=== PATIENT | male | born 1945 | race Caucasian/White ===

== ENCOUNTER → 2017-04-01 12:30 | Outpatient (CLI) | payer MEDICARE, OTHER, SELFPAY ==
--- NOTE | 2017-04-01 12:36 | CA_ITS ---
PROCEDURE: 2-D M-mode and color Doppler study INDICATIONS FOR THE TEST: Chest pain COPD Heart Murmur Tobacco Smokingex Palpitations Fatigue Syncope Edema Hypertension+Diabetes Mellitus Rheumatic Fever SOB CHRISTIAN Obesity Hyperlipidemia+ Family History HD Additional History Cardiomyopathy, CAD, hx of CABG 2 years ago PATIENT INFORMATION HEIGHT: 70 WEIGHT: 170 GENDER: Male B/P: 143/81 2-D/M-MODE INTERPRETATION: 2-D MEASUREMENTS OBSERVED VALUES IN CMS Right Ventricular Dimension (RVDd) 2.9 Interventricular Septum (Thickness)(IVsd) 1.1 Left Ventricular Internal Dimensions(LVIDd) 5.5 Left Ventricular Posterior Wall (Thickness)(LVPWd) 1.1 Aortic Root 3.2 Aortic Cusp Separation 2.0 Left Atrial Dimensions (LAD) 3.8 2D 1. Left atrium is mildly enlarged, left ventricle is normal size, mild concentric left ventricular visually estimated ejection fraction approximately 40-45%, there appears to be hypokinesis involving the apex ,inferobasal and posterobasal wall. Definity contrast was utilized to delineate endocardial surfaces. 2. The right atrium and right ventricle are mildly enlarged with normal contractility. 3. The aortic valve is thickened and calcified leaflet can't display mobility. 4. The mitral valve has mitral desiccation there is no mitral stenosis 5. The tricuspid valve restructure normal 6. The pulmonic valve is poorly visualized. 7. No significant pericardial effusion noted. DOPPLER INTERROGATION: Doppler interrogation of the aortic, mitral and tricuspid valvular presence of mild mitral and tricuspid regurgitation, tricuspid and jet velocity insufficient for calculation of the right ventricular systolic pressure. Diastolic parameters are inconclusive. CONCLUSION: 1. Technically difficult study because of the patient's factor and poor acoustic windows, Definity contrast ordered to delineate endocardial surfaces. 2. Mildly enlarged left atrium, normal left ventricular size, mild concentric left ventricular hypertrophy, visually estimated ejection fraction 40-45% with segmental wall motion abnormality described above. 3. Thickened and calcified aortic valve, without Doppler evidence of significant aortic stenosis or aortic insufficiency. 4. Mildly enlarged right ventricle with normal contractility. 5. Mild mitral and tricuspid regurgitation. 6. No significant pericardial effusion noted.
== END ==
PROVIDERS: PCP Family Medicine; Visit Provider Internal Medicine
DX: I42.8 Other cardiomyopathies (principal); I25.10 Atherosclerotic heart disease of native coronary artery without angina pectoris; E78.5 Hyperlipidemia, unspecified
CPT/HCPCS: 93306

== ENCOUNTER → 2018-11-24 06:34 | Outpatient (CLI) | payer MEDICARE, OTHER, SELFPAY ==
--- NOTE | 2018-11-24 | CA_ITS ---
APPROVED REPORT Exam: Pharmacologic Technologist: Zofia Mars, Ht: 5 ft 10 in Wt: 233 lbs BSA: 2.23 m2 HR: 88 bpm BP: 135/86 mmHg Indications: Dyspnea Medical History Medical History: DYSPNEA,CABG X 3 2015 Medications: Omeprazole,,,,, Furosemide (LASIX),,,,, Aspirin,,,,, Vitamin D3,,,,, Losartan,,,,, Allopurinol,,,,, Atorvastatin,,,,, Carvedilol,,,,, Potassium,,,,, Cardiac Risk Factors: HTN, Hyperlipidemia Stress Test Details Test: LEXISCAN HR Resting HR: 89 bpm Max Heart Rate (APMHR): 149 bpm Max HR Achieved: 99 bpm Target HR (85% APMHR): 126 bpm % of APMHR: 66 Recovery HR: 96 bpm HR response to stress: 57 BP Resting BP: 135/86 mmHg Max BP: 135/86 mmHg Recovery BP: 96.0/57.0 mmHg ECG Resting ECG: NSR,RAD,ST-T ABNORMALITIES INFERIORLY & LATERALLY Clinical Exercise duration: 04:11 min Highest Stage Achieved: Exercise capacity: 1.0 METs Stress ECG Conclusion DURING LEXISCAN INFUSION PATIENT HAD MILD SOA WITH LIGHTHEADEDNESS. MILD MALIASE AND MILD CHEST HEAVINESS. RARE PVC. EXAGGERATION OF BASELINE ST-T ABNORMALITIES. NON-DIAGNOSTIC LEXISCAN STRESS. MYOVIEW IMAGES REPORTED SEPARATELY. Test Summary REST . . . . . . . Sitting REST 23:02 . . 89 . 135/ 86 . . Stage 1 . . . . . . . Myoview Injected Stage 1 01:00 . . 96 . . . . Stage 2 01:00 . . 98 . 94/ 54 . . Stage 3 01:00 . . 95 . 101/ 63 . . Stage 4 01:00 . . 93 . 106/ 60 . . Stage 4 01:11 . . 93 . 106/ 60 . Stop exercise at 04:11 RECOVERY 01:00 . . 97 . 96/ 57 . . RECOVERY 02:00 . . 95 . 100/ 61 . . RECOVERY 03:00 . . 94 . 100/ 61 . . RECOVERY 04:00 . . 94 . 92/ 59 . . RECOVERY 05:00 . . 93 . 102/ 56 . . RECOVERY 06:00 . . 91 . 102/ 56 . . RECOVERY 07:00 . . 95 . 105/ 61 . . RECOVERY 07:37 . . 93 . 105/ 61 . . Electronically signed by : Arnoldo Sabillon, 11/25/2018 16:45:29
--- NOTE | 2018-11-24 06:37 | CA_ITS ---
APPROVED REPORT EXAM: Comprehensive 2D, Doppler, and color-flow Echocardiogram Sailboat Captain: Monie Velasco CRT Ht: 5 ft 10 in Wt: 231lbs BSA: 2.22 BP: 155/104 mmHg Indications: Congestive Heart Failure, Shortness of Breath, Fatigue, CAD, Hyperlipidemia, Cardiomyopathy, Hypertension/HDD,CABG Echo Enhancing Agent Indication: Endocardial border delineation Agent(s) / Amount(s) Used: Definity 1 cc 2D Dimensions LVOT 2.20 cm (M/F) 1.5-2.5 M-Mode Dimensions RVDd 3.10 cm (0.9-2.6) LA Diam 4.30 cm (1.9-4.0) LVDd 5.90 cm (3.5-5.7) Ao Diam 2.90 cm (2.0-3.7) LVDs 4.10 cm (3.5-5.7) AV Cusp 1.70 cm (1.5-2.6) IVSd 1.20 cm (0.6-1.1) PWd 1.20 cm (0.6-1.1) EF (Teich) 57.10% FS 30.50% EDV (Teich) 173.00 mL ESV (Teich) 74.20 mL LV Diastology E/A Ratio 0.6 MED E' 5.26 (< 7 cm/sec) E'/MED E' Ratio 11.70 (>14) LAT E' 5.56 (<10 cm/sec) E/LAT E' Ratio 11.10 (>14) Aortic Valve AoV Peak Lino. 97.20 (50-130 cm/s) AI PHT 252.00 ms AO Peak GR. 4.00 mmHg Mitral Valve MV E Max Lino. 61.70 (40-130 cm/s) MV A Velocity 109.00 (40-130 cm/s) E/A Ratio 0.60 Pulmonary Valve PA Accel Time 77.00 (>120 msec) Tricuspid Valve TR P. Velocity 236.00 cm/s Left Ventricle Left atrium is mildly enlarged, left ventricle is mildly dilated, there is mild concentric left ventricular hypertrophy, visually estimated ejection fraction 50%, with moderate hypokinesis involving the inferior basal wall. Grade 1 diastolic dysfunction seen without tissue Doppler evidence of raise left atrial pressure. Right Ventricle Right atrium and right ventricular mildly enlarged with normal contractility. Aortic Valve Aortic root is enlarged measuring 3.9 cm, there is no aortic stenosis, there is mild aortic insufficiency. Mitral Valve Mitral valve leaflets are minimally thickened. There is no mitral stenosis, there is mild mitral regurgitation. Tricuspid Valve Tricuspid valve is grossly normal, there is mild tricuspid regurgitation, tricuspid regurgitation jet velocity is inadequate for calculation of the right ventricular systolic pressure. Pulmonic Valve Pulmonic valve is poorly visualized. Great Vessels Aortic root is enlarged measuring 3.9 cm, ascending aorta is mildly enlarged. Pericardium No significant pericardial effusion noted. Conclusion 1. Technically difficult study because of the patient factors and poor requesting windows, Definity contrast was utilized to delineate the endocardial surfaces. 2. Mildly enlarged left atrium, normal left ventricular size, mild concentric left ventricular hypertrophy, visually estimated ejection fraction 50% with segmental wall motion abnormality described above, there is no left ventricular thrombus seen. Grade 1 diastolic dysfunction seen without tissue Doppler evidence of raise left atrial pressure. 3. Mildly enlarged right ventricle with normal contractility. 4. Aortic root and ascending aorta is enlarged measuring 3.9 cm, there is no aortic stenosis, there is mild aortic insufficiency. 5. Mild mitral and tricuspid regurgitation. 6. No significant pericardial effusion noted. Electronically signed by : Arnoldo Sabillon, 11/26/2018 08:52:28
--- NOTE | 2018-11-24 06:38 | NM_ITS ---
APPROVED REPORT Exam: Nuclear Stress Test Indication: dyspnea Patient Location: Outpatient Stress Tech: Zofia Mars [place] Tech:Kelsie HartmannSCOTTY RT(R)(N) Ht: 5 ft 10 in Wt: 233 lbs BSA: 2.23 m2 HR: 88 bpm BP: 135/86 mmHg BMI: 33.4 Procedure: Patient received a 0.4 mg of intravenous Lexiscan, resting heart rate 88 bpm, resting blood pressure 135/86 mmHg, with Lexiscan maximum heart rate achived was 97 bpm which is Less than 85 % of the maximum predicted heart rate and blood pressure was 101/63 mmHg. With Lexiscan patient complained of mild chest heaviness. Electrocardiogram Resting electro cardiogram showed sinus rhythm nonspecific ST-T changes, with Lexiscan there is less than 1.[address] segment depression noted from the baseline EKG. The EKG portion of the Lexiscan Myoview is nondiagnostic. Cardiac Stress and Resting SPECT Images: Cardiac Stress and Resting SPECT images were obtained using technetium 99m Myoview 32.1 mCi stress and 10.37 mCi at rest. Gated SPECT with analysis of segmental wall motion and calculation of the ejection fraction also done. Cardiac stress and resting SPECT images show uniform myocardial activity without segmental perfusion abnormality, computer derived ejection fraction is over 65% with no regional wall motion abnormality, right ventricle is normal size and contractility. Conclusion: 1. The EKG portion of the Lexiscan Myoview is nondiagnostic. 2. No scintigraphic evidence of reversible ischemia seen, computer derived ejection fraction is over 65% with no regional wall motion abnormality, right ventricle is normal size and contractility. 3. Normal Lexiscan Myoview study. Electronically signed by : Arnoldo Sabillon, 11/25/2018 16:42:51
--- NOTE | 2018-11-24 10:45 | HMH.ITSHM ---
Current Home Medications as stated by this patient Osvaldo Hurtado JR or asset protection representative. [] asa losatan allopurinol tamsulosin carvedilol furosemide atrovastatin omprazole
== END ==
PROVIDERS: PCP Family Medicine; Visit Provider Internal Medicine Cardiovascular Disease
DX: E78.5 Hyperlipidemia, unspecified (principal); I10 Essential (primary) hypertension; I25.10 Atherosclerotic heart disease of native coronary artery without angina pectoris; I25.2 Old myocardial infarction; I25.5 Ischemic cardiomyopathy; I42.9 Cardiomyopathy, unspecified; R06.00 Dyspnea, unspecified; Z95.1 Presence of aortocoronary bypass graft
CPT/HCPCS: 78452; 93017; 93306; A9502; J2785

== ENCOUNTER → 2018-11-26 09:14 | Outpatient (CLI) | payer MEDICARE, OTHER, SELFPAY ==
[2018-11-26 09:40] LABS: Basophils # 0.1 K/mm3 (0-0.2); Basophils % 0.8 % (0.1-2.0); Eosinophils # 0.4 K/mm3 (0.0-0.4); Eosinophils % 3.3 % (0.1-12.0); Hematocrit 46.6 % (42.0-52.0); Hemoglobin 15.5 g/dL (14.1-18.0); Lymphocytes # 1.8 K/mm3 (0.7-4.5); Lymphocytes % 17.2 % (10-50); Mean Corpuscular HGB Conc 33.1 g/dL (31.8-35.4); Mean Corpuscular Volume 90.6 fl (80-94); Monocytes # 0.9 K/mm3 (0.1-1.0); Monocytes % 9.1 % (1.7-9.3); Neutrophils # 7.2 K/mm3 (1.8-7.8); Neutrophils % 69.6 % (37.0-80.0); Platelet Count 237 K/mm3 (142-424); Red Blood Count 5.15 M/mm3 (4.60-6.20); Red Cell Distribution Width 13.6 % (11.5-17.5); White Blood Count 10.4 K/mm3 (4.8-10.8)
[2018-11-26 17:44] LABS: Alanine Aminotransferase 53 U/L (12-78); Albumin Level 3.7 gm/dL (3.4-5.0); Alkaline Phosphatase 98 U/L (46-116); Anion Gap 19.6 mEq/L (5-15); Aspartate Amino Transferase 32 U/L (15-37); Bilirubin,Direct 0.2 mg/dL (0.0-0.2); Bilirubin,Indirect 0.7 mg/dL (0.0-0.9); Bilirubin,Total 0.9 mg/dL (0.2-1.0); Blood Urea Nitrogen 17 mg/dL (7-18); Calcium 9.2 mg/dL (8.5-10.1); Carbon Dioxide 23 mmol/L (21.0-32.0); Chloride 101 mmol/L (98-107); Chol/HDL Ratio 3.8 (1-3.5); Cholesterol 128 mg/dL (140-200); Creatinine,Serum 1.12 mg/dL (0.70-1.30); Estimated Glomerular Filt Rate 65 ml/min (>60); GFR (African American) 78 ML/MIN (>60); Glucose 141 mg/dL (74-106); HDL Cholesterol 34 mg/dL (27-67); LDL Cholesterol 51 mg/dL (0-130); Potassium 4.6 mmoL/L (3.5-5.1); Sodium 139 mmol/L (136-145); Triglycerides 215 mg/dL (30-200); VLDL Cholesterol 43 mg/dL (0-40)
[2018-11-26 18:07] LABS: Thyroid Stimulating Hormone 4.15 uIU/ml (0.358-3.740)
== END ==
PROVIDERS: Visit Provider Internal Medicine Cardiovascular Disease
DX: E78.5 Hyperlipidemia, unspecified (principal); I10 Essential (primary) hypertension; I25.10 Atherosclerotic heart disease of native coronary artery without angina pectoris; I25.2 Old myocardial infarction; I25.5 Ischemic cardiomyopathy; I42.9 Cardiomyopathy, unspecified; R06.00 Dyspnea, unspecified; Z95.1 Presence of aortocoronary bypass graft
CPT/HCPCS: 36415; 80048; 80061; 80076; 83880; 84439; 84443; 85025

== ENCOUNTER → 2018-12-09 08:53 | Outpatient (CLI) | payer MEDICARE, OTHER, SELFPAY ==
[2018-12-09 09:48] LABS: Anion Gap 14.6 mEq/L (5-15); Blood Urea Nitrogen 21 mg/dL (7-18); Calcium 9.4 mg/dL (8.5-10.1); Carbon Dioxide 27 mmol/L (21.0-32.0); Chloride 104 mmol/L (98-107); Creatinine,Serum 1.14 mg/dL (0.70-1.30); Estimated Glomerular Filt Rate 63 ml/min (>60); GFR (African American) 77 ML/MIN (>60); Glucose 137 mg/dL (74-106); Potassium 4.6 mmoL/L (3.5-5.1); Sodium 141 mmol/L (136-145)
== END ==
PROVIDERS: Visit Provider Internal Medicine Cardiovascular Disease
DX: E78.2 Mixed hyperlipidemia (principal); I25.10 Atherosclerotic heart disease of native coronary artery without angina pectoris; I25.2 Old myocardial infarction; I25.5 Ischemic cardiomyopathy; I50.23 Acute on chronic systolic (congestive) heart failure; R06.02 Shortness of breath; Z95.1 Presence of aortocoronary bypass graft
CPT/HCPCS: 36415; 80048

== ENCOUNTER → 2019-05-05 10:20 | Outpatient (CLI) | payer MEDICARE, OTHER, SELFPAY ==
[2019-05-05 11:34] LABS: Chloride 100 mmol/L (98-107); Potassium 4.8 mmoL/L (3.5-5.1); Sodium 140 mmol/L (136-145)
[2019-05-05 11:37] LABS: Anion Gap 14.8 mEq/L (5-15); Blood Urea Nitrogen 17 mg/dl (9-20); Calcium 9.6 mg/dl (8.4-10.2); Carbon Dioxide 30 mmol/L (22.0-30.0); Estimated Glomerular Filt Rate 66 ml/min (>60); GFR (African American) 80 ML/MIN (>60); Glucose 143 mg/dl (74-100)
[2019-05-05 13:10] LABS: NT Pro Brain Natriuretic Pep. 606 pg/mL (0-125)
== END ==
PROVIDERS: Visit Provider Physician Assistant
DX: I50.23 Acute on chronic systolic (congestive) heart failure (principal)
CPT/HCPCS: 80048; 83880

== ENCOUNTER → 2019-05-26 09:55 | Outpatient (CLI) | payer MEDICARE, OTHER, SELFPAY ==
[2019-05-26 11:33] LABS: Anion Gap 18.1 mEq/L (5-15); Blood Urea Nitrogen 20 mg/dl (9-20); Calcium 10.3 mg/dl (8.4-10.2); Carbon Dioxide 27 mmol/L (22.0-30.0); Chloride 101 mmol/L (98-107); Estimated Glomerular Filt Rate 60 ml/min (>60); GFR (African American) 72 ML/MIN (>60); Glucose 135 mg/dl (74-100); Potassium 5.1 mmoL/L (3.5-5.1); Sodium 141 mmol/L (136-145)
== END ==
PROVIDERS: Visit Provider Internal Medicine Cardiovascular Disease
DX: I50.9 Heart failure, unspecified (principal)
CPT/HCPCS: 36415; 80048

== ENCOUNTER → 2019-06-17 09:15 | Outpatient (CLI) | payer MEDICARE, OTHER, SELFPAY ==
[2019-06-17 10:52] LABS: Anion Gap 14.7 mEq/L (5-15); Blood Urea Nitrogen 20 mg/dl (9-20); Calcium 9.6 mg/dl (8.4-10.2); Carbon Dioxide 27 mmol/L (22.0-30.0); Chloride 102 mmol/L (98-107); Estimated Glomerular Filt Rate 66 ml/min (>60); GFR (African American) 80 ML/MIN (>60); Glucose 143 mg/dl (74-100); Potassium 4.7 mmoL/L (3.5-5.1); Sodium 139 mmol/L (136-145)
== END ==
PROVIDERS: Visit Provider Physician Assistant
DX: E78.5 Hyperlipidemia, unspecified (principal); I25.10 Atherosclerotic heart disease of native coronary artery without angina pectoris; I25.2 Old myocardial infarction; I25.5 Ischemic cardiomyopathy; I42.9 Cardiomyopathy, unspecified; I50.23 Acute on chronic systolic (congestive) heart failure; R06.00 Dyspnea, unspecified; Z95.1 Presence of aortocoronary bypass graft; I11.0 Hypertensive heart disease with heart failure
CPT/HCPCS: 36415; 80048

== ENCOUNTER → 2019-08-11 10:33 | Outpatient (CLI) | payer MEDICARE, OTHER, SELFPAY ==
[2019-08-11 13:24] LABS: NT Pro Brain Natriuretic Pep. 258 pg/mL (0-125)
== END ==
PROVIDERS: Visit Provider Internal Medicine Cardiovascular Disease
DX: R06.00 Dyspnea, unspecified; I50.23 Acute on chronic systolic (congestive) heart failure; E78.5 Hyperlipidemia, unspecified; I25.10 Atherosclerotic heart disease of native coronary artery without angina pectoris; I25.2 Old myocardial infarction; I25.5 Ischemic cardiomyopathy; I42.9 Cardiomyopathy, unspecified; Z95.1 Presence of aortocoronary bypass graft
CPT/HCPCS: 36415; 83880

== ENCOUNTER → 2019-08-17 14:34 | Outpatient (CLI) | payer MEDICARE, OTHER, SELFPAY ==
--- NOTE | 2019-08-17 14:34 | CT_ITS ---
PROCEDURE: CT CHEST WO CON CLINICAL INDICATION: dyspnea Dyspnea COMPARISON: ABDPELW/O CT ABD PELVIS W/O CONTRAST from 09/04/2016 ABDPELW/O CT ABD PELVIS W/O CONTRAST from 09/20/2016 TECHNIQUE: Axial images obtained with sagittal and coronal reformats. All CT scans at the facility use one or more dose reduction, viz: automated exposure control, ma/kV adjustment per patient size (including targeted exams where dose is matched to indication, i.e. head), or iterative reconstruction technique. FINDINGS: There has been a prior median sternotomy. Coronary artery and aortic calcifications are noted. Prior CABG. There is a moderate-sized hiatal hernia with thickening of the distal esophagus. There is COPD with scattered areas of scarring and centrilobular emphysema. There are mild atelectatic changes in the right lower lobe. There is a 7 mm nodule within the left upper lobe medially at the hilar region. There are some mild pulmonary fibrotic changes in the peripheral aspect of the upper and lower lobes. There are degenerative changes of the thoracic spine with ankylosis of the thoracic spine. Upper abdominal images show a moderate-sized hiatal hernia. IMPRESSION: 1. COPD with mild pulmonary fibrosis 2. There is a 6 mm nodule within the left perihilar region nonspecific. Consider six-month follow-up. 3. Moderate-sized hiatal hernia with thickening of the distal esophagus which may be related to a combination of collapse and the hernia. Soft guidance is included in the differential diagnosis. Neoplasm is not excluded. Upper endoscopy or barium swallow may provide further evaluation. Dictated by: Wayne Zaragoza MD 08/18/2019 12:40 Electronically signed by Wayne Zaragoza MD in [place] 08/18/2019 12:40
== END ==
PROVIDERS: PCP Family Medicine; Visit Provider Internal Medicine Cardiovascular Disease
DX: R06.00 Dyspnea, unspecified; I42.9 Cardiomyopathy, unspecified; I25.2 Old myocardial infarction; I25.5 Ischemic cardiomyopathy; I50.23 Acute on chronic systolic (congestive) heart failure; E78.5 Hyperlipidemia, unspecified
CPT/HCPCS: 71250

== ENCOUNTER → 2019-10-10 13:42 | Outpatient (POV) | payer MEDICARE, OTHER, SELFPAY | PROVIDERS: PCP Family Medicine; Visit Provider Nurse Practitioner Family | DX: Z00.00 Encounter for general adult medical examination without abnormal findings (principal) ==

== ENCOUNTER → 2019-10-20 10:52 | Outpatient (CLI) | payer MEDICARE, OTHER, SELFPAY ==
[2019-10-20 13:46] LABS: Coronavirus 19 IgG Antibody Negative (Negative); Coronavirus 19 IgM Antibody Negative (Negative)
== END ==
PROVIDERS: Visit Provider Internal Medicine Gastroenterology
DX: Z03.818 Encounter for observation for suspected exposure to other biological agents ruled out (principal)
CPT/HCPCS: 36415; 86328

== ENCOUNTER 2019-10-21 08:30 | Day surgery (SDC) | payer MEDICARE, OTHER, SELFPAY ==
[2019-10-18 09:50] VITALS: BMI 33.4
[2019-10-21] VITALS (7 sets, daily range): BP systolic 88–127; BP diastolic 64–86; PULSE 69–82; RESP 16–18; TEMP 36.4; O2SAT 94–98
--- NOTE | 2019-10-21 10:52 | HMH.ANESCL ---
[facility] Anesthesia Checklist - Patient Identification Patient Identification: Arm Band, Verbal (Name & ) - Structural Data Admitted From: Home Planned Operative Procedure/s: EGD Consent for Planned Operative Procedure(s) Verified: Yes Verified Documents: Surgical Consent, History and Physical - NPO Status Verified Time NPO: 00:00 - Chart Verification Results Verified: None - Additional verifications Anesthesia Reactions: No - Airway Assessment C-Spine Mobility Assessed: Yes TMJ Mobility Assessed: Yes Dentition: Poor Dentition (missing, broken, chipped,) - Neurological Assessment Level of Consciousness: Awake, Alert, Appropriate, Follows Commands Hx Seizures: No Numbness or tingling in extremities: No - Anesthesia Plan Anesthesia Risk discussed: Yes Anesthesia Plan: Verified ASA Class: III Anesthesia Type: MAC [facility] History I have reviewed the patient's past medical history: Yes Medical History: Reports:: BPH, Cancer (prostate), Cardiomyopathy, Congestive Heart Failure, Coronary Artery Disease, Gastroesophageal Reflux Disease(GERD), Hyperlipidemia, Hypertension, Myocardial Infarction Denies:: Diabetes Mellitus Type 1, Diabetes Mellitus Type 2, Internal Pacemaker, Lung Disease, MRSA, Seizures *Have you ever received a pneumonia vaccine?: Yes *Have you received a flu vaccine this season?: Yes Comment:: obesity Anesthesia experience/problems:: no prior complications Laterality Cases: Bilateral: Arthroscopy Knee, Tonsillectomy Other Surgeries: Yes: CABG (x3 vessel). No: Pacemaker Amputation: No Fractures: No - *Social History Last grade of school completed: High school graduate Smoking Status: Never smoker Alcohol Intake: never Substance Use Type: denies use *Occupational Status:: retired Housing: house Household Members: none *Travel in the last 8 weeks: None Family Hx:: Non-contributory
--- NOTE | 2019-10-21 11:07 | HMH.PROC ---
[facility] Procedure Note Procedure Note:: Upper Endoscopy Procedure Report: Esophagogastroduodenoscopy with cold biopsies Endoscopost: Neil Colón II, MD Referring Physician: Zane Vega M.D./Yuri Jewell M.D. Date of Procedure: October 21, 2019 Equipment: Olympus GIF 180 standard upper endoscope Sedation: MAC sedation Indications: Mr. Hurtado is a 74-year-old gentleman who is here for diagnostic upper endoscopy. He does have a history of GERD. He also has a history of some shortness of breath or difficulty getting a deep breath. He was seen by cardiology. He does have a history of CASHD with prior CABG and also has some COPD. He has moderate bloating. The patient reports no heartburn, reflux or dysphagia. He did have a CT scan of the abdomen that showed a moderate sized hiatal hernia with some distal thickening of the esophagus. He does have some occasional constipation. He has no other abdominal complaints or dyspepsia. Procedure: Prior to the procedure, a history and physical exam was performed, and patient's medications and allergies were reviewed. The risks, benefits and alternatives of the sedation and procedure were discussed with the patient. All questions were answered and informed consent was obtained. The patient was brought to the procedure room. Patient identification and proposed procedure were verified by the physician and the nurse. The patient was placed in a left lateral decubitus position and the scope was passed under direct vision. Throughout the procedure, the patient's blood pressure, pulse, and oxygen saturations were monitored continuously. The upper GI endoscopy was accomplished without difficulty. The patient tolerated the procedure well. Findings: The scope was passed directly into the upper esophagus and advanced to the third portion of the duodenum. The post bulbar duodenum and duodenal bulb were normal with normal mucosa and conniventes. The scope was withdrawn through a normal duodenal bulb and pylorus into the stomach. There was some reactive gastropathy of the antrum was some prepyloric erythema and edema. There was mild chronic gastritis of the body and fundus. Upon retroflexion there was a moderate size 5 to 6 cm hiatal hernia. 2 biopsies were taken in the antrum and along the lesser curvature for histology to rule out gastritis and/or H pylori. The scope was then withdrawn into the esophagus. There was no evidence of reflux esophagitis or Ragland's. There were tertiary contractions and moderate esophageal dysmotility/presbyesophagus. The remainder of the esophageal mucosa was normal. Impression: 1. Moderate sized 5 to 6 cm hiatal hernia 2. Presbyesophagus/esophageal dysmotility 3. Chronic reactive gastropathy and mild chronic gastritis Plan: I will follow-up the biopsies. The patient is clinically asymptomatic. I do feel that he has moderate bloating which may be causing pressing up of the diaphragm/diaphragmatic musculature. This can sometimes make one feel as if they have difficulty getting a good deep breath. I will discuss the findings with patient and family.
== END 2019-10-21 11:57 | disposition home or self-care (01) ==
PROVIDERS: PCP Family Medicine; Visit Provider Internal Medicine Gastroenterology
PROC: 0DJ08ZZ Inspection of Upper Intestinal Tract, Via Natural or Artificial Opening Endoscopic (ICD-10-PCS; CPT 43235; principal; 2019-10-21 09:30)
DX: K29.30 Chronic superficial gastritis without bleeding (principal); K31.9 Disease of stomach and duodenum, unspecified; J44.9 Chronic obstructive pulmonary disease, unspecified; K21.9 Gastro-esophageal reflux disease without esophagitis; K44.9 Diaphragmatic hernia without obstruction or gangrene; K22.4 Dyskinesia of esophagus; I25.10 Atherosclerotic heart disease of native coronary artery without angina pectoris; E78.5 Hyperlipidemia, unspecified; I11.0 Hypertensive heart disease with heart failure; I25.2 Old myocardial infarction; I50.9 Heart failure, unspecified; Z85.46 Personal history of malignant neoplasm of prostate; Z95.1 Presence of aortocoronary bypass graft
CPT/HCPCS: 43239; 88305; 88342

== ENCOUNTER → 2020-02-15 08:44 | Outpatient (CLI) | payer MEDICARE, OTHER, SELFPAY ==
--- NOTE | 2020-02-15 08:44 | CT_ITS ---
PROCEDURE: lung nodule f/u CLINICAL INDICATION: Lung nodule followup COMPARISON: CT CT CHEST WO CON from 08/17/2019 TECHNIQUE: Axial images obtained with sagittal and coronal reformats. All CT scans at the facility use one or more dose reduction, viz: automated exposure control, ma/kV adjustment per patient size (including targeted exams where dose is matched to indication, i.e. head), or iterative reconstruction technique. FINDINGS: HEART AND MEDIASTINAL STRUCTURES: Prior median sternotomy. Atherosclerotic changes of the aorta with diffuse coronary artery calcifications. No mediastinal or hilar mass. There is mild dilatation of the ascending aorta at 4.4 cm not significantly changed. LUNGS AND PLEURAL SPACES: COPD changes with scattered areas of scarring and pulmonary fibrotic change. There are atelectatic changes in the right lower lobe. There is evidence of old granulomatous disease. 7 mm left perihilar nodule is unchanged axial image 34. There is a stable 4 mm noncalcified nodule in the left lower lobe on image 44. There is a subpleural parenchymal opacity in the right upper lobe image 32 which measures 9 mm and may be due to an area of scarring foot appears slightly more dense when compared to the previous study. This could be due to the slice orientation. Suggest continued six-month follow-up BONY STRUCTURES: Ankylosis noted of the thoracic spine. UPPER ABDOMEN: Hiatal hernia. There is fine increased density along the posterior aspect of the gallbladder suggesting gallstones. There is coarse calcification in the pancreatic head which could be due to chronic pancreatitis. ADDITIONAL FINDINGS: No other significant abnormalities. IMPRESSION: 1. Overall no change in the 7 mm left perihilar nodule. 2. Subpleural parenchymal opacity in the right upper lobe which appears slightly more prominent but may be due to the slice orientation. Continued six-month follow-up suggested. 3. COPD with scattered areas of scarring. 4. Cholelithiasis 5. Calcification in the head of the pancreas suggesting chronic pancreatitis. 6. Fusiform dilatation of the ascending aorta at 4.4 cm unchanged Dictated by: Wayne Zaragoza MD 02/17/2020 06:15 Wayne Zaragoza MD in [place] 02/17/2020 06:15
[2020-02-15 10:50] VITALS: PULSE 86; PULSE 90
== END ==
PROVIDERS: PCP Family Medicine; Visit Provider Internal Medicine Pulmonary Disease
DX: R91.1 Solitary pulmonary nodule (principal)
CPT/HCPCS: 71250; 94060; 94618; 94640; 94726; 94729

== ENCOUNTER → 2020-09-10 07:42 | Outpatient (CLI) | payer MEDICARE, OTHER, SELFPAY ==
--- NOTE | 2020-09-10 07:44 | CA_ITS ---
APPROVED REPORT EXAM: Comprehensive 2D, Doppler, and color-flow Echocardiogram Sourcing Consultant: Sita Medeiros RT(R) Ht: 5 ft 10 in Wt: 206lbs BSA: 2.11 BP: 000/00 mmHg Indications: HTN, hyperlipidemia, CHF, fatigue, CAD, CM, CABG, GERD, old MD, SOB 2D Dimensions LVOT 2.07 cm (M/F) 1.5-2.5 LA Volume 66.90 mL LA Volume Index 31.70 mL/m2 (M/F) 16-34 M-Mode Dimensions RVDd 3.08 cm (0.9-2.6) LA Diam 4.30 cm (1.9-4.0) LVDd 4.06 cm (3.5-5.7) Ao Diam 3.27 cm (2.0-3.7) LVDs 2.90 cm (3.5-5.7) IVSd 1.12 cm (0.6-1.1) PWd 0.80 cm (0.6-1.1) EF (Teich) 55.60% FS 28.60% EDV (Teich) 72.50 mL ESV (Teich) 32.20 mL LV Diastology E Decel Time 190.00 (160-240 msec) E/A Ratio 1.0 MED E' 5.20 (< 7 cm/sec) E'/MED E' Ratio 19.83 (>14) LAT E' 10.00 (<10 cm/sec) E/LAT E' Ratio 10.31 (>14) Aortic Valve LVOT Max 97.00 (70-110 cm/s) LVOT VTI 20.16 cm AoV Peak Lino. 129.00 (50-130 cm/s) AO Peak GR. 6.60 mmHg AO Mean GR. 3.30 (<5 mmHg) AO VTI 24.96 (18-25 cm) ROSEMARY (VTI) 2.72 (2.5-4.5 cm2) Mitral Valve MV E Max Lino. 103.00 (40-130 cm/s) MV A Velocity 103.00 (40-130 cm/s) E/A Ratio 1.00 MV Decel. Time 190.00 (160-240 ms) MV PHT 56.00 ms Left Ventricle Left atrium is mildly enlarged, left ventricle is normal size, mild concentric left ventricular hypertrophy, visually estimated ejection fraction 55% with no regional wall motion abnormality, grade 2 diastolic dysfunction seen without tissue Doppler evidence of raise left atrial pressure. Right Ventricle Right atrium and right ventricle are normal size and contractility. Aortic Valve Aortic valve is thickened and calcified without Doppler evidence of aortic stenosis, there is trace aortic insufficiency. Mitral Valve Mitral valve leaflets are minimally thickened, there is mild mitral regurgitation. Tricuspid Valve Tricuspid grossly normal, there is trace tricuspid regurgitation, tricuspid regurgitation jet velocity is inadequate for calculation of the right ventricular systolic pressure. Pulmonic Valve Pulmonic valve is poorly visualized. Great Vessels Aortic root is normal size. Pericardium No significant pericardial effusion noted. Conclusion 1. Mildly enlarged left atrium, normal left ventricular size, mild concentric left ventricular hypertrophy, visually estimated ejection fraction 55% with no regional wall motion abnormality, grade 2 diastolic dysfunction seen without tissue Doppler evidence of raise left atrial pressure. 2. Thickened and calcified aortic valve without aortic stenosis, there is trace aortic insufficiency. 3. Mild mitral and trace tricuspid regurgitation. 4. No significant pericardial effusion noted. Electronically signed by : Arnoldo Sabillon, 09/10/2020 09:27:45
== END ==
PROVIDERS: PCP Family Medicine; Visit Provider Nurse Practitioner Family
DX: E78.2 Mixed hyperlipidemia (principal); I10 Essential (primary) hypertension; I25.10 Atherosclerotic heart disease of native coronary artery without angina pectoris; I25.5 Ischemic cardiomyopathy; R06.02 Shortness of breath; Z95.1 Presence of aortocoronary bypass graft
CPT/HCPCS: 93306

== ENCOUNTER → 2020-10-09 06:26 | Outpatient (CLI) | payer MEDICARE, OTHER, SELFPAY ==
--- NOTE | 2020-10-09 06:28 | NM_ITS ---
APPROVED REPORT Exam: Nuclear Stress Test Indication: SOB, CAD, CABG, HTN, High cholesterol Patient Location: Outpatient Stress Tech: Diana Her CT Tech:Minal Floyd, ARRT, RT (R)(N) Ht: 5 ft 10 in Wt: 202 lbs HR: 61 bpm BP: 160/91 mmHg BSA: 2.10 m2 BMI: 28.9 History: SOB, CAD, CABG, HTN, High cholesterol Procedure: Patient received a 0.4 mg of intravenous Lexiscan, resting heart rate 61 bpm, resting blood pressure 160/91 mmHg, with Lexiscan maximum heart rate achived was 81 bpm which is Less than 85 % of the maximum predicted heart rate and blood pressure was 132/71 mmHg. Electrocardiogram Resting electrocardiogram showed sinus rhythm, with Lexiscan there is less than 1.[address] segment depression noted from the baseline EKG. The EKG portion of the Lexiscan is nondiagnostic. Cardiac Stress and Resting SPECT Images: Cardiac Stress and Resting SPECT images were obtained using technetium 99m Myoview 30.2 mCi stress and 9.71 mCi at rest. Gated SPECT for analysis of segmental wall motion and calculation of the ejection fraction also done. Cardiac stress and rest SPECT images show uniform myocardial activity without segmental perfusion abnormality, computer derived ejection fraction is 60% with no regional wall motion abnormality, right ventricle is normal size and contractility. Conclusion: 1. The EKG portion of the Lexiscan is nondiagnostic. 2. No scintigraphic evidence of reversible ischemia seen, computer derived ejection fraction is 60% with no regional wall motion abnormality, right ventricle is normal size and contractility. 3. Normal Lexiscan Myoview study. Electronically signed by : Arnoldo Sabillon, 10/09/2020 20:28:08
--- NOTE | 2020-10-09 06:28 | CA_ITS ---
APPROVED REPORT Exam: Pharmacologic Technologist: phillip simon, Ht: 5 ft 10 in Wt: 208 lbs BSA: 2.12 m2 HR: 61 bpm BP: 160/91 mmHg Rhythm: NSR,FIRST DEGREE AVB,T WAVE ABNORMALITIES IN LEADS III AND aVF Indications: SOA Medical History Medical History: HTN, Hyperlipidemia Medications: Omeprazole,,,,, Metoprolol,,,,, Asa,,,,, Flomax,,,,, Allopurinol,,,,, Lasix,,,,, Lipitor,,,,, Albuterol,,,,, Allergies: No known drug allergies Cardiac Risk Factors: Hyperlipidemia, HTN Stress Test Details Test: LEXISCAN HR Resting HR: 62 bpm Max Heart Rate (APMHR): 147.542311 bpm Max HR Achieved: 83 bpm Target HR (85% APMHR): 124.175829 bpm % of APMHR: 56.46 Recovery HR: 69 bpm BP Resting BP: 160.0/91.0 mmHg Max BP: 160.0/91.0 mmHg Recovery BP: 143.0/83.0 mmHg ECG Resting ECG: NSR, FIRST DEGREE AV BLOCK,T WAVE ABNS IN LEADS III AND aVF Clinical Exercise duration: 04:00 min Highest Stage Achieved: Exercise capacity: 1.0 METs Stress ECG Conclusion DURING INFUSION PATIENT HAD MILD CHEST HEAVINESS AND MILD SOA. NO ARRHYTHMIAS/ECTOPY. NS ST-T CHANGES IN LEAD V6. MILD EXAGGERATION OF BASELINE INFERIOR T WAVE CHANGES. NON-DIAGNOSTIC LEXISCAN. MYOVIEW IMAGES REPORTED SEPARATELY. Test Summary REST 03:00 . . 62 . 160/ 91 . . Stage 1 01:00 . . 76 . . . . Stage 2 01:00 . . 81 . 132/ 71 . . Stage 3 01:00 . . 74 . 135/ 79 . . Stage 4 01:00 . . 74 . 137/ 81 . Stop exercise at 04:00 RECOVERY 01:00 . . 69 . . . . RECOVERY 02:00 . . 70 . 143/ 83 . . RECOVERY 03:00 . . 71 . 147/ 92 . . RECOVERY 03:17 . . 69 . 147/ 92 . . Electronically signed by : Arnoldo Sabillon, 10/09/2020 20:04:56
--- NOTE | 2020-10-09 08:24 | HMH.ITSHM ---
Current Home Medications as stated by this patient Osvaldo Hurtado JR or territory representative. []TAMSULOSIN OMEPRAZOLE METOPROLOL FUROSEMIDE VITAMIN D3 ATORVASTATIN ASA ALLOPURINOL ALBUTEROL ACETOMINOPHEN
== END ==
PROVIDERS: PCP Family Medicine; Visit Provider Urology
DX: I25.10 Atherosclerotic heart disease of native coronary artery without angina pectoris; R06.00 Dyspnea, unspecified
CPT/HCPCS: 78452; 93017; A9502; J2785

== ENCOUNTER → 2020-10-23 12:39 | Outpatient (CLI) | payer MEDICARE, OTHER, SELFPAY ==
--- NOTE | 2020-10-23 12:40 | CT_ITS ---
PROCEDURE: CT HR CHEST X3 CLINICAL HISTORY: Interstitial lung disease COMPARISON: CT CT CHEST WO CON from 02/15/2020 TECHNIQUE: High-resolution images are obtained with inspiration and expiration. The patient was unable to lie prone. Axial images obtained with sagittal and coronal reformats. All CT scans at the facility use one or more dose reduction, viz: automated exposure control, ma/kV adjustment per patient size (including targeted exams where dose is matched to indication, i.e. head), or iterative reconstruction technique. FINDINGS: There has been a prior CABG. There is extensive coronary artery calcification. There is mild dilatation of the ascending aorta with a maximum diameter 4.4 cm similar to the previous exam. No mediastinal or hilar mass. No adenopathy. There is a medium-sized hiatal hernia. COPD changes with scattered areas of scarring. Stable 4 mm nodule right upper lobe image 19. Stable subpleural opacity right upper lobe anteriorly at 1 cm and may be due to pulmonary fibrotic changes. No change 4 mm nodular opacity left lower lobe. No new nodules evident. There is gynecomastia. Small gallstone suspected. Severe abdominal aortic and visceral branch calcification. Punctate calcification noted along the head of the pancreas laterally suggestive of chronic pancreatitis. High-resolution images demonstrates peripheral reticulation with some minimal honeycombing in the lung bases. This is not significantly changed. There is some minimal traction bronchiectasis peripherally. 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 No significant air trapping. IMPRESSION: 1. Overall stable CT appearance of the chest with COPD and mild pulmonary fibrotic changes suggestive of UIP with stable bilateral pulmonary nodular opacities 2. No change mild fusiform dilatation of the ascending aorta Dictated by: Wayne Zaragoza MD 10/25/2020 10:21 Wayne Zaragoza MD in [facility] 10/25/2020 10:21
== END ==
PROVIDERS: PCP Family Medicine; Visit Provider Internal Medicine Pulmonary Disease
DX: R06.00 Dyspnea, unspecified (principal); J84.9 Interstitial pulmonary disease, unspecified
CPT/HCPCS: 71250; 94060; 94618; 94727; 94729

== ENCOUNTER → 2020-10-30 11:12 | Outpatient (CLI) | payer MEDICARE, OTHER, SELFPAY ==
[2020-10-30 12:56] LABS: Uric Acid 5.5 mg/dl (3.5-8.5)
[2020-10-30 13:02] LABS: C-Reactive Protein 0.6 mg/L (0-4)
[2020-10-30 14:18] LABS: Erythrocyte Sedimentation Rate 46 mm/hr (0-20)
[2020-10-31 08:21] LABS: RA Latex Turbid. <10.0 IU/mL (0.0-13.9)
[2020-11-01 10:27] LABS: Antinuclear Antibodies, IFA Positive (.)
[2020-11-13 10:48] LABS: Antinuclear Antibodies (ANA) NEGATIVE
== END ==
PROVIDERS: Visit Provider Internal Medicine Pulmonary Disease
DX: J84.9 Interstitial pulmonary disease, unspecified (principal); R06.00 Dyspnea, unspecified
CPT/HCPCS: 36415; 84550; 85651; 86038; 86140; 86225; 86235; 86431

== ENCOUNTER 2020-11-01 09:07 | Emergency (ER) | payer MEDICARE, OTHER, SELFPAY ==
[2020-11-01 09:07] VITALS: BP 167/93; PULSE 90; RESP 18; TEMP 36.7; O2SAT 96; BMI 29.1
--- NOTE | 2020-11-01 09:07 | ECG_ITS ---
APPROVED REPORT Exam: Resting ECG HR:75 bpm ECG Measurements Heart Rate 75 AXES WV 220 P 45 QRSd 104 QRS 26 QT 402 T -11 QTc 448 Conclusion Sinus rhythm with 1st degree AV block Minimal voltage criteria for LVH, may be normal variant Possible Inferior infarct, age undetermined Abnormal ECG Electronically signed by : Abner Leonard MD 11/02/2020 12:05:23
--- NOTE | 2020-11-01 09:11 | PC.NURSE ---
notified karla ricci in cardiology of consult on pt
--- NOTE | 2020-11-01 09:21 | XR_ITS ---
PROCEDURE: XR CHEST 2V CLINICAL HISTORY: chest pain COMPARISON: CR CXR CHEST(2 VIEWS-NOT PORTABLE) from 09/08/2016 CR CXR-PICC CHEST PORTABLE-PICC PLACEMENT from 09/09/2016 CR CXR1 CHEST-PORTABLE from 09/20/[address] HR CHEST X3 from 10/23/2020 FINDINGS: Prior CABG. Normal heart size. The lungs are clear without infiltrates, suspicious nodules, or pleural effusions. No acute bony abnormalities. IMPRESSION: No acute findings. Dictated by: Wayne Zaragoza MD 11/01/2020 10:21 Wayne Zaragoza MD in [facility] 11/01/2020 10:21
[2020-11-01 09:32] VITALS: BP 135/80; PULSE 63; RESP 19; O2SAT 97
[2020-11-01 09:37] LABS: Basophils # 0.1 K/mm3 (0-0.2); Basophils % 0.8 % (0.1-2.0); Eosinophils # 0.4 K/mm3 (0.0-0.4); Eosinophils % 3.3 % (0.1-12.0); Hematocrit 46.2 % (42.0-52.0); Hemoglobin 15.8 g/dL (14.1-18.0); Lymphocytes # 2.7 K/mm3 (0.7-4.5); Lymphocytes % 20.1 % (10-50); Mean Corpuscular HGB Conc 34.3 g/dL (31.8-35.4); Mean Corpuscular Hemoglobin 29.5 pg (27.0-31.2); Mean Platelet Volume 9.2 fl (7.4-10.4); Monocytes # 1.1 K/mm3 (0.1-1.0); Monocytes % 8.3 % (1.7-9.3); Neutrophils % 67.7 % (37.0-80.0); Platelet Count 230 K/mm3 (142-424); Red Blood Count 5.37 M/mm3 (4.60-6.20); Red Cell Distribution Width 14.3 % (11.5-17.5); White Blood Count 13.3 K/mm3 (4.8-10.8)
--- NOTE | 2020-11-01 09:38 | PC.NURSE ---
Pt returning from Rad at this time
--- NOTE | 2020-11-01 09:42 | HMH.EDGENADL ---
ED Disposition Clinical Impression: Musculoskeletal chest pain, Unsteadiness Disposition: Home, Self-Care Condition on Discharge: Good Instructions: DI for Atypical Chest Pain, Dizziness, Nonvertigo Additional Instructions: Additional instructions for CHEST PAIN: See your physician as soon as possible for further evaluation. Return immediately if worsening chest pain, vomiting, shortness of breath, fever, coughing of blood. CT scan of your head showed calcification of your cerebral blood vessels. Follow-up with your primary care provider for further evaluation and treatment. Referrals: Provider,Referral, [Referring] - - Critical Care Critical Care Time: No Attestation: On 11/01/20, the high probability of a clinically significant, sudden or life threatening deterioration of the following system(s) required my full and direct attention, intervention and personal management. The time I documented below is in addition to time spent performing reported procedures but includes the following listed in this critical care notation. Medical Decision Making - Umberto Inquiry Pt receiving controlled substance: No Vital Signs: 11/01/20 09:07 11/01/20 09:32 11/01/20 10:00 Temperature 98.1 F Temperature Source Oral Pulse Rate 63 67 Pulse Rate [Right Radial] 90 Respiratory Rate 18 19 12 Blood Pressure 135/80 145/87 H Blood Pressure [Right Arm] 167/93 H Blood Pressure Mean [Right Arm] 117 Blood Pressure Source [Right Arm] Automatic Cuff Blood Pressure Position [Right Arm] Sitting 02 Sat by Pulse Oximetry 96 97 97 Oxygen Delivery Method Room Air - Lab Data Lab Results 11/01/20 09:21: WBC 13.3 H, RBC 5.37, Hgb 15.8, Hct 46.2, MCV 86.0, MCH 29.5, MCHC 34.3, RDW 14.3, Plt Count 230, MPV 9.2, Neut % (Auto) 67.7, Lymph % (Auto) 20.1, [place] % (Auto) 8.3, Eos % (Auto) 3.3, Baso % (Auto) 0.8, Neut # (Auto) 9.0 H, Lymph # (Auto) 2.7, [place] # (Auto) 1.1 H, Eos # (Auto) 0.4, Baso # (Auto) 0.1 11/01/20 09:21: Sodium 140, Potassium 4.6, Chloride 105, Carbon Dioxide 26, Anion Gap 13.6, BUN 13, Creatinine 0.90, Estimated Creat Clear 86, Estimated GFR 83, Est GFR ( Amer) 100, Glucose 113 H, Calcium 9.1, Troponin I < 0.01 Result diagrams: 11/01/20 09:21 11/01/20 09:21 Orders (Tests/Meds): ORDERS Category Date Time Status Consult to Cardiology [CONS] Routine Cons 11/01/20 10:09 Active Troponin I Q3H Lab 11/01/20 12:30 Ordered Troponin I Q3H Lab 11/01/20 15:30 Ordered - Radiology Data #1 Image(s): Chest Image Reviewed: Yes I have reviewed radiologist's interpretation PROCEDURE: XR CHEST 2V CLINICAL HISTORY: chest pain COMPARISON: CR CXR CHEST(2 VIEWS-NOT PORTABLE) from 09/08/2016 CR CXR-PICC CHEST PORTABLE-PICC PLACEMENT from 09/09/2016 CR CXR1 CHEST-PORTABLE from 09/20/[address] HR CHEST X3 from 10/23/2020 FINDINGS: Prior CABG. Normal heart size. The lungs are clear without infiltrates, suspicious nodules, or pleural effusions. No acute bony abnormalities. IMPRESSION: No acute findings. Dictated by: Wayne Zaragoza MD 11/01/2020 10:21 Wayne Zaragoza MD in [facility] 11/01/2020 10:21 - CT Data CT Scan: Head Time Received: 10:[address] Reviewed: Yes: I have viewed the radiologist's interpretation Findings Narrative: PROCEDURE: CT HEAD/BRAIN WO CON CLINICAL INDICATION: unsteady gait COMPARISON: No exams were available for comparison TECHNIQUE: Axial images obtained. All CT scans at the facility use one or more dose reduction, viz: automated exposure control, ma/kV adjustment per patient size (including targeted exams where dose is matched to indication, i.e. head), or iterative reconstruction technique. FINDINGS: No midline shift, mass effect, intracranial hemorrhage, hydrocephalus, or extra-axial fluid collection is evident. There is dense calcification of the left vertebral artery. Calcification also noted
[2020-11-01 09:47] LABS: Anion Gap 13.6 mEq/L (5-15); Blood Urea Nitrogen 13 mg/dl (9-20); Calcium 9.1 mg/dl (8.4-10.2); Carbon Dioxide 26 mmol/L (22.0-30.0); Chloride 105 mmol/L (98-107); Creatinine Clearance Estimated 86 mL/min (50-200); Estimated Glomerular Filt Rate 83 ml/min (>60); GFR (African American) 100 ML/MIN (>60); Glucose 113 mg/dl (74-100); Potassium 4.6 mmoL/L (3.5-5.1); Sodium 140 mmol/L (136-145)
[2020-11-01 10:00] VITALS: BP 145/87; PULSE 67; RESP 12; O2SAT 97
[2020-11-01 10:01] LABS: Troponin I < 0.01 ng/ml (0.00-0.034)
--- NOTE | 2020-11-01 10:15 | CT_ITS ---
PROCEDURE: CT HEAD/BRAIN WO CON CLINICAL INDICATION: unsteady gait COMPARISON: No exams were available for comparison TECHNIQUE: Axial images obtained. All CT scans at the facility use one or more dose reduction, viz: automated exposure control, ma/kV adjustment per patient size (including targeted exams where dose is matched to indication, i.e. head), or iterative reconstruction technique. FINDINGS: No midline shift, mass effect, intracranial hemorrhage, hydrocephalus, or extra-axial fluid collection is evident. There is dense calcification of the left vertebral artery. Calcification also noted involving the cavernous and clinoid portion of the ICA on both sides as well as the distal right middle cerebral artery there is generalized atrophy with hypoattenuation of the periventricular white matter consistent with microangiopathic changes.. The calvarium has an unremarkable appearance. No mastoid effusion. There is opacified right posterior ethmoid air cell. No sinus air-fluid levels are apparent. Mild mucosal thickening involves the maxillary sinuses. There is mild rightward nasal septal deviation. IMPRESSION: 1. No acute intracranial findings. 2. Atherosclerotic calcification of the left vertebral and internal carotid arteries and right MCA. 3. Mild sinus disease Dictated by: Wayne Zaragoza MD 11/01/2020 10:34 Wayne Zaragoza MD in [facility] 11/01/2020 10:34
[2020-11-01 10:30] VITALS: BP 129/80; PULSE 65; RESP 22; O2SAT 97
--- NOTE | 2020-11-01 10:52 | HMH.CNCARD ---
History of Present Illness Consult date: 11/01/20 Requesting physician: Jayme Wolfe Consult reason: chest pain, shortness of breath Chief complaint: Chest pain and dizziness History of present illness: 75-year-old male presented to ED this a.m. with bilateral shoulder pain radiating to the center of the chest. Patient states this pain only lasted for a very short time. Patient states he has been having a swimming feeling in his head which is causing his balance to be toward the left. Patient states that has been going on for quite some time. Patient denies chest pain, tightness or pressure during this assessment. Patient does complain of shortness of breath but states the shortness of breath is no worse than usual. Patient does have history of diastolic dysfunction which may be causing his shortness of breath. Patient denies palpitations. Patient states dizziness only with positional change. No swelling noted of the lower extremities. Patient denies fever cough. Patient denies nausea or vomiting. Patient denies fatigue. Weight has been stable. Patient does have history of hypotension. During this assessment that will signs are stable. Patient does have history of coronary artery disease. Medical management was in 2017. History of CABG in 2016. Patient is on aspirin daily. Patient has history of hyperlipidemia in which he is on a statin. This is managed by PCP. History of cardiomyopathy. Last echocardiogram was in September 03 which revealed EF 55% with no regional wall abnormality, grade 2 diastolic dysfunction. Patient does have a trace of aortic insufficiency. Patient did undergo Myoview stress testing in September 2020 which was a normal Lexiscan study. EKG reveals sinus rhythm with first-degree AV block abnormal EKG with heart rate 75 bpm. Patient did undergo a head CT scan which revealed no acute intracranial findings. Atherosclerotic calcification noted of the left vertebral and internal carotid arteries and right MCA. Mild sinus disease was noted. Chest x-ray has also been performed which revealed no acute findings. Troponin x1 has been negative. Head CT IMPRESSION: 1. No acute intracranial findings. 2. Atherosclerotic calcification of the left vertebral and internal carotid arteries and right MCA. 3. Mild sinus disease Echo Conclusion (09/03) 1. Mildly enlarged left atrium, normal left ventricular size, mild concentric left ventricular hypertrophy, visually estimated ejection fraction 55% with no regional wall motion abnormality, grade 2 diastolic dysfunction seen without tissue Doppler evidence of raise left atrial pressure. 2. Thickened and calcified aortic valve without aortic stenosis, there is trace aortic insufficiency. 3. Mild mitral and trace tricuspid regurgitation. 4. No significant pericardial effusion noted. Lexixscan:Conclusion:(10/03) 1. The EKG portion of the Lexiscan is nondiagnostic. 2. No scintigraphic evidence of reversible ischemia seen, computer derived ejection fraction is 60% with no regional wall motion abnormality, right ventricle is normal size and contractility. 3. Normal Lexiscan Myoview study. Discussed plan of care with Dr. Traore. Orders were received from Dr. Traore. Patient did have normal Lexiscan Myoview study in September 2020. Echocardiogram in August 2020 revealed 55% EF with no regional wall motion abnormality and grade 2 diastolic dysfunction. Trace aortic insufficiency was also noted. Mild MR and TR also noted. Serial troponins are being performed in the ED along with cardiac work-up. First troponin has been negative. Recommend no further cardiac testing at this time if serial troponins are negative. Patient will need carotid studies on an outpatient basis due to atherosclerotic calcification of the left vertebral and internal carotid arteries and right MCA noted on the head CT. If cardiac work-up is negative, Patient may be discharged home. Patient will need to follo
--- NOTE | 2020-11-01 11:06 | PC.NURSE ---
Notified Rad of CT orders
[2020-11-01 11:10] VITALS: BP 129/76; PULSE 69; RESP 18; TEMP 36.8; O2SAT 98
[2020-11-01 11:15] VITALS: BP 129/76; PULSE 66; RESP 19; O2SAT 96
== END 2020-11-01 11:23 | disposition home or self-care (01) ==
PROVIDERS: Emergency Provider Emergency Medicine; PCP Family Medicine
DX: R07.89 Other chest pain (principal); R26.81 Unsteadiness on feet; I50.22 Chronic systolic (congestive) heart failure; I42.9 Cardiomyopathy, unspecified; K21.9 Gastro-esophageal reflux disease without esophagitis; I10 Essential (primary) hypertension; E78.5 Hyperlipidemia, unspecified; I25.2 Old myocardial infarction; Z95.1 Presence of aortocoronary bypass graft
CPT/HCPCS: 70450; 71046; 80048; 84484; 85025; 93005; 99283

== ENCOUNTER 2021-05-19 11:09 | Emergency (ER) | payer MEDICARE, OTHER, SELFPAY ==
--- NOTE | 2021-05-19 11:34 | XR_ITS ---
PROCEDURE INFORMATION: Exam: XR Left Humerus Exam date and time: 05/19/2021 11:34 AM Age: 76 years old Clinical indication: Mass or lump; Arm, upper; Left; Additional info: Pain and swelling TECHNIQUE: Imaging protocol: XR Left humerus. Views: 2 or more views. COMPARISON: [id number] VIEWS 03/03/2015 9:27 PM FINDINGS: Bones/joints: No evidence of an acute fracture or dislocation. Osteoarthritic changes of the shoulder joint. Soft tissues: Unremarkable as visualized. IMPRESSION: No evidence of an acute fracture or dislocation.
[2021-05-19 11:40] VITALS: BP 106/72; PULSE 91; RESP 21; TEMP 36.9; O2SAT 97; BMI 29.5
--- NOTE | 2021-05-19 11:57 | HMH.EDUTC ---
[facility] Disposition Clinical Impression: Torn muscle Disposition: Home, Self-Care Condition on Discharge: Good Instructions: DI for Muscle Strain Additional Instructions: call [facility] for follow up loretta tylenol as needed for pain rest arm return or be seen in ed if any concerns Referrals: Provider,Referral, MD [Primary Care Provider] - Time of Disposition: 12:09 Medical Decision Making - Umberto Inquiry Pt receiving controlled substance: No Orders (Tests/Meds): ORDERS Category Date Time Status XR humerus LT Stat Exams 05/19/21 11:34 Taken [facility] HPI - General Chief complaint: [facility] Stated complaint: left arm pain, no accident Time Seen by Provider: 05/19/21 11:57 Mode of Arrival: Ambulatory Source of Information: Patient Limitations: No Limitations - History of Present Illness Provider Complaint: 76 yr old male presents for left arm pain. pt states he was reaching for something that was falling and he jerked real quick and felt pain in upper arm. pt states at times the know is bigger. - Related Data Home Medications Medication Instructions Recorded Confirmed acetaminophen 500 mg tablet 500 mg PO Q6H PRN 04/08/17 01/23/21 allopurinol 100 mg tablet 100 mg PO QDAY 04/08/17 01/23/21 aspirin 81 mg tablet,delayed 81 mg PO QDAY 04/08/17 01/23/21 release atorvastatin 80 mg tablet 80 mg PO QDAY 04/08/17 01/23/21 cholecalciferol (vitamin D3) 25 1,000 unit PO ONCE 04/08/17 01/23/21 mcg (1,000 unit) capsule omeprazole 20 mg capsule,delayed 20 mg PO QDAY 04/08/17 01/23/21 release tamsulosin 0.4 mg capsule 0.4 mg PO QDAY 04/08/17 01/23/21 furosemide 40 mg tablet 20 mg PO .MWF tab 09/03/20 01/23/21 Previous Rx's Medication Instructions Recorded albuterol sulfate 90 mcg/actuation 1 inh INHALATION QID PRN #6.7 g 10/24/19 aerosol inhaler metoprolol succinate 100 mg 150 mg PO DAILY #135 tab 09/10/20 tablet,extended release 24 hr Allergies Allergy/AdvReac Type Severity Reaction Status Date / Time No Known Allergies Allergy Verified 01/23/21 09:05 [facility] History - Hepatitis A Screen Attestation statement:: This patient has been screened for Hepatitis A risk factors. I have reviewed the patient's past medical history: Yes Medical History: Reports:: BPH, Cancer, Cardiomyopathy, Congestive Heart Failure, Coronary Artery Disease, Gastroesophageal Reflux Disease(GERD), Hyperlipidemia, Hypertension, Myocardial Infarction Denies:: Diabetes Mellitus Type 1, Diabetes Mellitus Type 2, Internal Pacemaker, Lung Disease, MRSA, Seizures Comment: obesity Laterality Cases: Bilateral: Arthroscopy Knee, Tonsillectomy Other Surgeries: Yes: No Previous Surgery, CABG (x3 vessel). No: Pacemaker Amputation: No Fractures: No - Social History Smoking Status: Former smoker Tobacco Type: cigarettes Alcohol Intake: never Substance Use Type: denies use Occupational Status: other Housing: house Household Members: none Family Hx:: Non-contributory ROS Obtained: Yes Systems reviewed as appropriate & no additional complaints - Constitutional Constitutional: Reports system reviewed and no additional complaints, except as docu, Denies fever(s) - Eyes Eyes: Reports system reviewed and no additional complaints, except as docu, Denies dry eyes - ENT Ears, Nose, Mouth, and Throat: Reports system reviewed and no additional complaints, except as docu, Denies dizziness - Cardiovascular Cardiovascular: Reports system reviewed and no additional complaints, except as docu, Denies chest pain - Respiratory Respiratory: Reports system reviewed and no additional complaints, except as docu, Denies change in phlegm color - Gastrointestinal Gastrointestingal: Reports: system reviewed and no additional complaints, except as docu. Denies: abdominal pain - Musculoskeletal Musculoskeletal: Reports system reviewed and no additional complaints, except as docu, Reports as per HPI, Reports other - Integum
[2021-05-19 12:10] VITALS: BP 106/72; PULSE 91; RESP 21; TEMP 36.9; O2SAT 97
== END 2021-05-19 12:14 | disposition home or self-care (01) ==
PROVIDERS: Emergency Provider Nurse Practitioner Family
DX: M62.838 Other muscle spasm (principal); I11.0 Hypertensive heart disease with heart failure; I50.9 Heart failure, unspecified; I25.10 Atherosclerotic heart disease of native coronary artery without angina pectoris; I25.2 Old myocardial infarction; I25.5 Ischemic cardiomyopathy; E78.5 Hyperlipidemia, unspecified; K21.9 Gastro-esophageal reflux disease without esophagitis; N40.0 Benign prostatic hyperplasia without lower urinary tract symptoms; M19.90 Unspecified osteoarthritis, unspecified site; Z79.1 Long term (current) use of non-steroidal anti-inflammatories (NSAID); Z79.51 Long term (current) use of inhaled steroids; Z79.82 Long term (current) use of aspirin; Z79.899 Other long term (current) drug therapy; Z87.891 Personal history of nicotine dependence
CPT/HCPCS: 73060; 99213; G0463